=== PATIENT | male | born 1970 | race Caucasian/White ===

== ENCOUNTER 2021-03-25 08:56 | Emergency (ER) | payer MEDICAID ==
[~2021-03-25] VITALS: Ht 172.7 cm; Wt 91.0 kg
[2021-03-25] MEDS ORDERED: ACETAMINOPHEN 325MG TABLET PO STA (13:39)
[2021-03-25] MEDS ORDERED: MAGNESIUM/ALUMINUM HYDROXIDE/SIMETHICONE 30ML UDC PO STA (13:39)
[2021-03-25] MEDS ORDERED: CHLORDIAZEPOXIDE 25MG CAPSULE PO ONE (13:45)
[2021-03-25] MEDS ORDERED: FAMOTIDINE 20MG TABLET PO ONE (13:45)
[2021-03-25 16:16] LABS: BASOPHILS % 0.7 % (0.0-2.0); HEMATOCRIT. 44.9 % (42.0-52.0); HEMOGLOBIN. 15.9 g/dL (14.0-18.0); LYMPHOCYTES % 20.5 % (20.0-50.0); MEAN CORPUSCULAR HEMOGLOBIN 29.2 pg (28.0-32.0); MEAN CORPUSCULAR VOLUME 82.5 fL (80.0-94.0); MEAN PLATELET VOLUME 7.5 fl (7.4-10.4); MONOCYTES % 11.1 % (2.0-8.0); NEUTROPHILS % 67.7 % (40.0-76.0); PLATELET 433 x1000/uL (130-400); RED BLOOD CELL COUNT 5.44 mill/uL (4.7-6.1); RED CELL DISTRIBUTION WIDTH 13.7 % (11.6-14.6)
[2021-03-25 16:22] LABS: CHLORIDE 100 mEq/L (98-107)
[2021-03-25] MEDS ORDERED: LORAZEPAM 1MG TABLET PO ONE (16:30)
[2021-03-25] MEDS: LORAZEPAM 2MG/ML CPJ IM PRN ×2 (17:43→18:15)
[2021-03-25] MEDS ORDERED: SODIUM CHLORIDE 0.9% 1,000 ML IV ONE (18:30)
[2021-03-25] MEDS ORDERED: IMOD MT (21:03)
[2021-03-25 21:31] VITALS: BP 128/68
== END 2021-03-25 21:33 | disposition home or self-care (01) ==
LOC: ER 08:56
DX: F10.239 Alcohol dependence with withdrawal, unspecified (principal); R00.0 Tachycardia, unspecified; F41.9 Anxiety disorder, unspecified; F17.200 Nicotine dependence, unspecified, uncomplicated; E86.0 Dehydration; Z79.899 Other long term (current) drug therapy; Y90.9 Presence of alcohol in blood, level not specified
CPT/HCPCS: 36415; 80053; 83690; 85025; 96360; 96361; 96372; 99284; J2060; J7030